=== PATIENT | male | born 1980 | race Caucasian/White ===

== ENCOUNTER 2024-07-28 18:34 | Emergency (ER) | payer BC, OTHER, SELFPAY ==
[2024-07-28 18:46] VITALS: BP 132/94
[2024-07-28] MEDS: KEFLEX 500 MG PO (19:53)
[2024-07-28] MEDS: ADACEL 0.5 ML IM (19:53)
--- NOTE | 2024-07-28 20:33 | ED.GENMED ---
History of Present Illness
General
Chief Complaint: Skin Surface Trauma
Source: patient
Exam Limitations: none
Time Seen by Provider: 07/28/24 19:00
Nursing documentation reviewed up to this point in time: agreed with
History of Present Illness
History of Present Illness:
44-year-old male presenting to the emergency department today with concerns of left distal middle finger laceration occurring from a saw prior to arrival. Denies numbness weakness or additional injuries. He is not sure when his last tetanus shot
was.
Review of Systems
Review of Systems
Allergies reviewed?: Yes
All Other Systems: ROS reviewed and negative except as documented in HPI and ROS
Phy Exam
Physical Exam
Physical Exam:
GENERAL: Alert , in no apparent distress
EYE: pupils equal and reactive
NECK: Supple, no significant adenopathy.
ENT: o/p clr, mmm.
CARDIAC: Regular rate and rhythm .
LUNGS: Clear breath sounds bilaterally, no acute respiratory distress, no wheezes/rales/rhonchi
ABDOMEN: Soft, without focal tenderness, no r/g, no cvat
NEUROLOGICAL: Alert and oriented, no focal neuro deficits
SKIN: Laceration to the distal left middle finger at the pulp of the finger no involvement of the nailbed does not cross the joint. Subcutaneous in depth. Warm and dry, skin intact.
MUSCULOSKELETAL: No edema, well perfused.
PSYCH: Normal and appropriate interaction.
Course
Orders/Labs/Results
Orders:
Orders
07/28/24 19:11
Cephalexin Monohydrate [Keflex] 500 mg PO NOW STA
Tetanus/Diphth/Acelpertussis [Adacel] 0.5 ml IM .ONCE ONE
CR Hand - Left Min 3 Views Urgent
Comment:
Reason For Exam: left middle finger lac
Vital Signs
Initial and Last Documented VS:
Initial Vital Signs
Temp Pulse Resp Pulse Ox
98.1 F 85 16 98
07/28/24 18:41 07/28/24 18:41 07/28/24 18:41 07/28/24 18:41
Last Documented Vital Signs
Temp Pulse Resp BP Pulse Ox
98.1 F 85 16 132/94 98
07/28/24 18:41 07/28/24 18:41 07/28/24 18:41 07/28/24 18:46 07/28/24 18:41
Procedures
Laceration Closure
Left Distal Palmar Third Finger:
Status of Wound: clean
Size of Wound in cm: 2.5
Description of Wound Edges: ragged and surrounded by abrasion
Preparation: cleaned with saline
Anesthesia: 2% Lidocaine and Digital-Regional
Revision/Debridement: routine- no revision and irrigate-direct pressure
Wound exploration: explored to base- no FB and no tendon involvement
Type of Closure: single layer closure
Skin Closure Material: 4-0 nylon
Number of sutures: 5
MDM/Problems Addressed
MDM/Problems Addressed:
44-year-old male presenting to the emergency department concerns of laceration to his left distal middle finger. X-ray without signs of fracture. Area was cleaned thoroughly and closed with 5 stitches there was some tissue loss therefore a portion
of the laceration was not able to be fully closed. Bleeding was well-controlled no foreign body seen started on antibiotics due to the macerated type laceration otherwise stable for outpatient management return precautions given.
*Critical Care Note
Total Time (30-74mins, 75-104mins- exclusive of procedures): Not Applicable
ED Attending Note
-
Portions of this chart may have been created with voice recognition software.� Occasional wrong word or��sound alike� substitutions may have occurred due to the inherent limitations of voice recognition software.
Discharge Plan
Departure
Patient Disposition: Home (Routine Discharge)
Date of Disposition: 07/28/24
Time of Disposition: 20:33
Patient with high blood pressure during this ER visit?: No
Condition: Good
Covid-19: Not Applicable
Discharge Problem:
Finger laceration
Instructions: Laceration Repair With Stitches (DC)
Prescriptions:
New
cephalexin 500 mg capsule
500 mg PO TID 3 Days Qty: 9 0RF
Referrals:
NONE,* [Family Provider] -
Activity Restrictions/Additional Instructions:
You came to the emergency department today with concerns of a laceration to your finger. This was cleaned and closed with 5 stitches. Please take the prescribed antibiotics to reduce risk of infection. Please follow-up in 14 days for suture
removal. Return for any worsening, new or concerning symptoms.
Interventions
Interventions:
*Risk Screen - Suicide Last Done: 07/28/24 18:41
*Neglect/Abuse Screening Last Done: 07/28/24 18:41
ED-Skin Assessment Last Done: 07/28/24 19:57
Discharge Date and Time
Print Language: LIBERIAN
== END 2024-07-28 21:05 | disposition home or self-care (01) ==
LOC: EMR 18:34
PROVIDERS: EMERGENCY PHYSICIAN Emergency Medicine
DX: S61.213A Laceration without foreign body of left middle finger without damage to nail, initial encounter (principal); W27.0XXA Contact with workbench tool, initial encounter; Z23 Encounter for immunization
CPT/HCPCS: 99283; 12001; 90471; 73130; 90715